=== PATIENT | male | born 1965 | race Caucasian/White ===

== ENCOUNTER → 2016-12-15 | Outpatient (CLI) | payer BC ==
[~2016-12-15] MED LIST: ESCI1TAB9 PO; GADAVIST IV PRN; IBUP-103 PO; INSUINJ4 SQ; METF-384 PO; PRLSR20 PO
--- NOTE | 2016-12-15 15:03 | DIAGNOSTIC IMAGING REPORT ---
MRI OF THE BRAIN WITHOUT AND WITH IV CONTRAST CLINICAL HISTORY: ATTN IAC, ACOUSTIC TRAUMA OF LT EAR COMPARISON STUDY: Head CT October 11, 2013. TECHNIQUE: Utilizing a 0.7 Nadiya open magnet and dedicated coil, multiplanar, multiecho imaging of the brain was performed pre and postcontrast administration. IV administration of 12 mL of Gadavist contrast was uneventful. Thin and imaging was performed pre and postcontrast administration according to the IAC protocol. FINDINGS: This exam is mildly compromised by artifact although is diagnostic. There are no areas of restricted diffusion. No acute intracranial hemorrhage, midline shift or mass effect is present. Ventricular system is unremarkable. Basilar cisterns are patent. Flow-voids for the major intracranial vessels are present. Note is made of a 1.5 cm nonenhancing cystic lesion within the right posterior aspect the nasopharynx which suggests a mucous retention cyst. This has benign imaging characteristics. There is no intracranial masses or pathologic enhancement. No mass or abnormal enhancement is identified within the internal auditory canals. There is no fluid within the mastoid air cells. Calvarial signal is maintained. Orbits are unremarkable. IMPRESSION: Unremarkable MRI of the brain and internal auditory canals. Electronically signed by: Manny Craft M.D. 12/15/2016 3:01 PM Dictated Date/Time: 12/15/2016 2:54 PM
== END | disposition home or self-care (01) ==
LOC: C.OPENMRI 13:36
PROVIDERS: ATTEND Surgery
DX: S09.91XA Unspecified injury of ear, initial encounter (principal); X58.XXXA Exposure to other specified factors, initial encounter

== ENCOUNTER → 2017-01-07 | Outpatient (CLI) | payer BC ==
[~2017-01-07] MED LIST changes: -GADAVIST IV PRN
[2017-01-07 13:26] LABS: BLOOD UREA NITROGEN 15 mg/dl (7-18); BUN/CREATININE RATIO 18.5 (10-20); CALCIUM 8.6 mg/dl (8.5-10.1); CARBON DIOXIDE 25 mmol/L (21-32); CHLORIDE 105 mmol/L (98-107); CREATININE 0.82 mg/dl (0.60-1.40); GLUCOSE 248 mg/dl (70-99); POTASSIUM 4.3 mmol/L (3.5-5.1); SODIUM 138 mmol/L (136-145)
[2017-01-07 13:27] LABS: ESTIMATED AVERAGE GLUCOSE 283 mg/dl; HA1C FLAG Normal (Normal)
[2017-01-07 13:47] LABS: RATIO 38.1 mcg/mg (0-30.0)
== END | disposition home or self-care (01) ==
LOC: C.LABPVFM 10:04
PROVIDERS: ATTEND Nurse Practitioner Adult Health
DX: E11.49 Type 2 diabetes mellitus with other diabetic neurological complication (principal); E78.1 Pure hyperglyceridemia; E11.65 Type 2 diabetes mellitus with hyperglycemia; E66.01 Morbid (severe) obesity due to excess calories; Z68.41 Body mass index [BMI] 40.0-44.9, adult

== ENCOUNTER → 2017-02-25 | Outpatient (CLI) | payer BC ==
[~2017-02-25] MED LIST changes: +ASPCH81X PO; +FLUO20CA35 PO; +GEMF600T PO; +INSDGI SC; +INSU100I SC; +LISI-725 PO; +MTR800 PO; +vitamin d PO
--- NOTE | 2017-02-25 17:34 | DIAGNOSTIC IMAGING REPORT ---
MRI LUMBAR SPINE W/O CONTRAST CLINICAL HISTORY: Low back pain with left leg radiculopathy. TECHNIQUE: Sagittal and axial T1, T2 and STIR images were obtained. COMPARISON STUDY: 01/05/2016 OBSERVATIONS: The vertebral bodies and posterior elements appear intact. There is no abnormal bony signal present to suggest a marrow replacement process. L1-2: There is a mild circumferential disc bulge. There is no significant spinal or foraminal stenosis L2-3: There is a mild circumferential disc bulge. There is an anterior annular fissure. There is a tiny right posterior central disc protrusion. There is no significant spinal or foraminal stenosis L3-4: There is a small to moderate broad-based central disc protrusion. There is moderate spinal canal narrowing. There is minimal bilateral foraminal narrowing. L4-5: There is a moderate central disc extrusion with marked secondary deformity of thecal sac. There is facet joint arthropathy. There is mild right-sided foraminal narrowing L5-S1: No disc protrusions or extrusions. No evidence of spinal canal or neural foraminal compromise. The conus medullaris and cauda equina appear normal. IMPRESSION: 1. Multilevel spondylitic changes 2. Interval decrease in the size of the previously identified disc extrusion at the L3-4 level. There is persistent moderate spinal canal narrowing 3. Slight interval increase in the size of the L4-5 disc extrusion with increasing secondary deformity of the thecal sac. Electronically signed by: Mike Barraza M.D. 02/25/2017 5:33 PM Dictated Date/Time: 02/25/2017 5:27 PM
== END | disposition home or self-care (01) ==
LOC: C.MRIBC 16:06
PROVIDERS: ATTEND Pain Medicine Interventional Pain Medicine
DX: M54.16 Radiculopathy, lumbar region (principal)

== ENCOUNTER → 2017-02-28 | Outpatient (CLI) | payer BC ==
[2017-02-28 13:08] LABS: ALT/SGPT 65 U/L (12-78); BLOOD UREA NITROGEN 18 mg/dl (7-18); BUN/CREATININE RATIO 21.7 (10-20); CARBON DIOXIDE 29 mmol/L (21-32); CHLORIDE 104 mmol/L (98-107); CHOLESTEROL 167 mg/dl (0-200); CREATININE 0.82 mg/dl (0.60-1.40); GLUCOSE 228 mg/dl (70-99); POTASSIUM 4.3 mmol/L (3.5-5.1); SODIUM 139 mmol/L (136-145)
[2017-02-28 13:11] LABS: ALB/GLOB RATIO 1.1 (0.9-2); ALKALINE PHOSPHATASE 71 U/L (45-117); AST/SGOT 35 U/L (15-37); CHOLESTEROL/HDL RATIO 5.6; HDL CHOLESTEROL 30 mg/dl; TRIGLYCERIDES 465 mg/dl (0-150)
== END | disposition home or self-care (01) ==
LOC: C.LABPVFM 09:27
PROVIDERS: ATTEND Family Medicine
DX: E78.1 Pure hyperglyceridemia (principal); E11.65 Type 2 diabetes mellitus with hyperglycemia; F32.9 Major depressive disorder, single episode, unspecified; I10 Essential (primary) hypertension; Z79.4 Long term (current) use of insulin

== ENCOUNTER → 2017-05-17 | Outpatient (CLI) | payer BC ==
[~2017-05-17] VITALS: Ht 170.2 cm; Wt 122.8 kg
[2017-05-17 15:28] VITALS: BP 138/83; PULSE 59; Ht 170.2 cm; Wt 122.8 kg
== END | disposition home or self-care (01) ==
LOC: C.NEUR 14:34
PROVIDERS: ATTEND Internal Medicine Pulmonary Disease
DX: G47.33 Obstructive sleep apnea (adult) (pediatric) (principal); E66.01 Morbid (severe) obesity due to excess calories; G47.21 Circadian rhythm sleep disorder, delayed sleep phase type

== ENCOUNTER → 2017-05-30 | Outpatient (CLI) | payer BC ==
[~2017-05-30] MED LIST changes: -ASPCH81X PO; -FLUO20CA35 PO; -GEMF600T PO; -INSDGI SC; -INSU100I SC; -LISI-725 PO; -MTR800 PO; -vitamin d PO
[2017-05-30 13:26] LABS: ALB/GLOB RATIO 1.2 (0.9-2); ALKALINE PHOSPHATASE 63 U/L (45-117); ALT/SGPT 49 U/L (12-78); AST/SGOT 25 U/L (15-37); BLOOD UREA NITROGEN 14 mg/dl (7-18); BUN/CREATININE RATIO 18.4 (10-20); CALCIUM 9.1 mg/dl (8.5-10.1); CARBON DIOXIDE 29 mmol/L (21-32); CHLORIDE 103 mmol/L (98-107); CHOLESTEROL 168 mg/dl (0-200); CHOLESTEROL/HDL RATIO 6.5; CREATININE 0.77 mg/dl (0.60-1.40); GLUCOSE 161 mg/dl (70-99); HDL CHOLESTEROL 26 mg/dl; POTASSIUM 4.5 mmol/L (3.5-5.1); SODIUM 137 mmol/L (136-145); TRIGLYCERIDES 554 mg/dl (0-150)
[2017-05-30 13:29] LABS: ESTIMATED AVERAGE GLUCOSE 252 mg/dl; HA1C FLAG Normal (Normal)
[2017-05-30 14:11] LABS: RATIO 15.7 mcg/mg (0-30.0)
== END | disposition home or self-care (01) ==
LOC: C.LABPVFM 08:09
PROVIDERS: ATTEND Nurse Practitioner Adult Health
DX: E78.1 Pure hyperglyceridemia (principal); E11.65 Type 2 diabetes mellitus with hyperglycemia; E78.5 Hyperlipidemia, unspecified; E55.9 Vitamin D deficiency, unspecified

== ENCOUNTER → 2017-06-01 | Outpatient (CLI) | payer BC ==
--- NOTE | 2017-06-07 09:26 | Sleep Study ---
Sleep Study Report Date of Service: June 02, 2017 Sleep Study Report Clinical data: The patient is a 51-year-old male with a BMI of 41.2 referred for a home sleep apnea test. He has a previous history of severe sleep apnea treated with CPAP for several years. He stopped using CPAP because he lost weight. He was referred by his psychiatrist, , for re-evaluation because of symptoms of depression. On the evening of June 02, 2017, a home sleep apnea test was performed using a [employer] type 3 monitor. Recording results: Total recording time was 10 hours. Patient monitoring time and estimated sleep time was 8.7 hours. Respiratory data: Severe sleep apnea was documented. The DAYTON was 52.1. There were 178 obstructive and 1 central apneic episodes recorded. There were 274 hypopneas recorded. The longest respiratory event was 60 seconds. Oximetry data: Significant nocturnal hypoxemia was seen. Oxygen sweetie was 63 percent. Mean saturation was 90 percent. Time below 89 percent was 152 minutes. Heart rate data: Heart rates ranged from 46 to 54 beats per minute. Snoring data: Snoring was recorded throughout the entire study. Carbon Paper Interleafer's comments: Snoring was present throughout the entire test. Hypopneas and apneas were recorded throughout the entire night. Desaturations into the 60s were seen with respiratory events. Impression: Severe obstructive sleep apnea with severe nocturnal hypoxemia Recommendations: The patient should be considered for reinstitution of CPAP. Copies To 1: Fozia Monte C.R.N.P; Virgen Gayle MD; Padmini Hoyt PA-C
== END | disposition home or self-care (01) ==
LOC: C.NEUR 08:32
PROVIDERS: ATTEND Internal Medicine Pulmonary Disease
DX: G47.33 Obstructive sleep apnea (adult) (pediatric) (principal); E66.01 Morbid (severe) obesity due to excess calories; Z68.41 Body mass index [BMI] 40.0-44.9, adult; R10.12 Left upper quadrant pain; F32.9 Major depressive disorder, single episode, unspecified; E55.9 Vitamin D deficiency, unspecified

== ENCOUNTER → 2017-06-07 | Outpatient (CLI) | payer BC ==
[~2017-06-07] VITALS: Ht 170.2 cm; Wt 125.6 kg
[2017-06-07 15:39] VITALS: BP 147/86; PULSE 67; Ht 170.2 cm; Wt 125.6 kg
== END | disposition home or self-care (01) ==
LOC: C.NEUR 14:40
PROVIDERS: ATTEND Physician Assistant Medical
DX: G47.33 Obstructive sleep apnea (adult) (pediatric) (principal); F32.9 Major depressive disorder, single episode, unspecified; I10 Essential (primary) hypertension; E66.01 Morbid (severe) obesity due to excess calories

== ENCOUNTER → 2017-07-22 | Outpatient (CLI) | payer BC ==
--- NOTE | 2017-07-23 06:19 | PAP/PSG TECHNICIAN REPORT ---
[facility] Associate Business Analyst Polysomnogram Report Study name: None Report date: 07/23/2017 Study date: 07/22/2017 Referring Physician: Farshad Toro M.D. Name: JOE VALENCIA Interpreting Physician: Farshad Toro M.D. Date of : 1965 Associate Business Analyst: Deborah Lucero RPSGT. Sex: Male Age: 51 Study Type: PSG PAP Weight: 276 lbs 18 in Height: 51 years, Height 5' 7" Neck Circum: BMI: 43.22 Medications: METFORMIN 1000 MG, OMEPRAZOLE 20 MG, GEMFIBROZIL 600 MG, LISINOPRIL 20 MG, LANTUS 75 UNITS, HUMALOG 25 UNITS, FLUOXTINE 20 MG, IBUPROFEN 800 MG Patient History 51 yr-old male here for a new CPAP treatment study. He has had previous sleep testing. In 2006, he was diagnosed with severe SHAWANDA. He wore CPAP until he lost 50 lbs. He discontinued use due to feeling better and more awake during the day. He is back to be reinstated on CPAP after a home sleep study indicated that he still had severe SHAWANDA. The test was started on room air and 4 CMH2O. ETCO2 testing was not utilized during this study. Room 1 Parameters Monitored NPSG: E1-M2, E2-M1, Fp1-M2, Fp2-M1, F3-M2, F4-M2, F4-M1, C3-M2, C4-M2, C4-M1, O1-M2, O2-M2, O2-M1, T3-M2, T4-M1, P3-M2, P4-M1, CHIN1, CHIN2, HR, EKG, Legs, PFLOW, SNOR, FLOW, CFLOW, Tidal Volume, THOR, ABDO, SpO2, PLTH, CPRESS, ETCO2 Wave, ETCO2, pH Sleep Architecture Sleep Stages Time at Lights Off 11:19:15 PM STAGES Time (min.) TST (%) Time at Lights On 5:36:45 AM Wake 47.0 -- Total Recording Time (TRT) 377.50 min. N1 26.0 8 Total Sleep Period (TSP) 372.0 min. N2 252.5 76 Total Sleep Time (TST) 330.5min. N3 0.0 0 Awake Time 47.0 min. REM 52.0 16 Wake after Sleep Onset 41.5 min. Sleep Efficiency (SE) 88 % Sleep Onset Latency (BERTHA) 5.5 min. Number of Stage 1 Shifts None Awakenings 10 Stage Changes 76 Number of REM periods 3 REM 52.0 16 REM Latency 84.0 min. NREM 278.5 84 Body Position Analysis Supine Right Left Side Prone Vertical Total Sleep Time (min.) 377.5 0.0 0.0 0.00 0.0 0.0 Total Sleep Time (%) 100% 0% 0% 0 0% N/A% Total Sleep Time REM (min.) 52.0 0.0 0.0 None 0.0 0.0 Total Sleep Time NREM (min.) 278.5 0.0 0.0 None 0.0 0.0 Intermittent Wake (min.) 47.0 0.0 0.0 None 0.0 0.0 Total Sleep Period (%) 100% None None None None None Arousals Myoclonus (PLM) * Events Count Index Events Count Index Spontaneous 21 4 Events Awake (PLMW) 21 26.8 Respiratory 39 6.7 Events Asleep w/ Arousal (PLMA) 7 1.3 PLM 7 1 Events Asleep w/o Arousal (PLMS) 91 16.5 Snoring 22 4 Total Asleep 98 17.8 Total 87 16 Total 119 19 Respiratory Analysis * CA OA MA CH H RERA Total Count 0 5 0 0 245 0 250 Index 0.0 0.9 0.0 0 44.5 0 45.4 Mean Duration 0.0 14.7 0.0 0.00 23.7 0.0 23.5 Longest Duration 0.0 17.6 0.0 0.00 0.0 0.0 59.9 Respiratory Event Summary Total Supine ~Supine Right Left Prone REM NREM Apneas Count 5 5 N/A N/A N/A N/A 2 3 Index 0.9 1 N/A N/A N/A N/A 2 1 Hypopneas (4% Desat) Count 245 245 N/A N/A N/A N/A 22 223 Index 44.5 44.5 N/A N/A N/A N/A 25.4 48.0 Apneas & All Hypopneas Count 250 250 N/A N/A N/A N/A 24 226 Index 45.4 45 N/A N/A N/A N/A 27.7 48.7 Respiratory Events (Family Living Educator+All Hyp+RERA) Count 250 250 N/A N/A N/A N/A 24 226 Index 45.4 45 N/A N/A N/A N/A 27.7 48.7 Respiratory Related Arousal Count 39 250 N/A N/A N/A N/A 2 35 Index 6.7 7 N/A N/A N/A N/A 2 8 Snoring Analysis Supine Right Left Prone REM NREM Total Snore duration 17.9 min Snores count 842 N/A N/A N/A 115 727 842 Snore mean duration 1.3 Sec Snores index 153 N/A N/A N/A 132.7 156.6 152.9 TST with snoring (%) 5.4% Desaturation Event Summary: Minimum %SpO2 Event Count Mean/Min/Max Duration(sec.) Desaturation Index % Time In Bed > 90 285 28.8 / 8.5 / 60.0 72.8 63.0 86 - 90 38 26.5 / 8.5 / 58.8 28.6 21.4 81 - 85 14 25.7 / 7.8 / 54.8 17.6 12.8 76 - 80 3 12.7 / 8.0 / 18.0 20.6 2.3 71 - 75 0 N/A 0.0 0.3 66 - 70 0 N/A 0.0 0.1 61 - 65 0 N/A 0.0 0.0 56 - 60 0 N/A 0.0 0.0 51 - 55 0 N/A 0.0 0.0 < 50 0 N/A 0.0 0.0 Total REM NREM Awake <50% 0.0 min. 0.0 min. 0.0 min. 0.0 min. 51 - 60% 0.0 min. 0.0 min. 0.0 min. 0.0 min. 61 - 70% 0.3 min. 0.3 min. 0.0 min. 0.0 min. 71 - 80% 10.0 min. 6.8 min. 3.2 min. 0.0 min. 81 - 90% 127.5 min. 28.6 min. 96.8 min. 2.1 min. 91 - 100% 234.8 min. 16.3 min. 178.5 min. 40.0 min. Average 91 87 92 95 Minimum SpO2 65 65 75 83 Desaturation Event Index 50.7 48.5 55.8 23.0 # Desat. Events below 89% 263 42 219 2 Time(%) with Saturation below 89% 27.8 8.0 19.6 0.3 Time(min.) with Saturation below 89% 103.6 29.7 72.9 1.0 Time (mins) REM (mins) NREM (mins) % of TST SpO2 Below 90% 285 42 N243 36.1 SpO2 Below 88% 130 0 0 26 Heart Rate Analysis Min (bpm) Max (bpm) Average (bpm) Awake 47 70 55 NREM 47 76 54 REM 50 85 61 Overall 47 85 55 Supplemental O2 Values Minimum O2 level: None Value Start Time End Time Associate Business Analyst Comments Mr. Valencia slept only in the supine position. Occasional PVCs were noted. No bruxism noted. CPAP was initiated at +4 CMH2O and up-titrated to a level of +14 CMH2O, Cflex 2. He continued to have hypopneas, so due to the high pressure, he was then switched to BiPAP. BiPAP was started at +16/10 CMH2O and up-titrated to a level of +23/15 CMH2O. A Quattro Air full face mask size medium from [employer] was used during titration. He awoke to use the restroom one time during the night. Mr. Valencia stated that he did not move around as much during sleep as he usually does. The final report will be interpreted and signed by a sleep physician. The completed physician report will then be placed in the patient medical record. Therapy Event: Therapy (cm H20) 4 6 8 10 12 14 Total Time at Pressure (min.) 29.7 11.0 13.0 25.3 53.6 44.2 TST at Pressure (min.) 11.7 11.0 13.0 24.8 52.6 44.2 # Periods 1 1 1 1 1 1 Sleep Onset (min.) 5.5 0.0 0.0 0.0 0.0 0.0 REM Onset (min.) N/A N/A N/A N/A 10.6 N/A Sleep Efficiency % 39 100 100 98 98 100 Wakefulness (%) 60.7 0.0 0.0 2.0 1.9 0.0 Wakefulness (min.) 18.0 0.0 0.0 0.5 1.0 0.0 NREM 1 (%) 25.9 7.5 3.8 2.0 12.1 0.0 NREM 1 (min.) 7.7 0.8 0.5 0.5 6.5 0.0 NREM 2 (%) 13.5 92.5 96.2 96.0 42.1 100.0 NREM 2 (min.) 4.0 10.2 12.5 24.3 22.6 44.2 NREM 3 (%) 0.0 0.0 0.0 0.0 0.0 0.0 NREM 3 (min.) 0.0 0.0 0.0 0.0 0.0 0.0 REM (%) 0.0 0.0 0.0 0.0 43.9 0.0 REM (min.) 0.0 0.0 0.0 0.0 23.5 0.0 # Arousals 15 1 2 1 19 5 Arousal Index 77.1 5.4 9.2 2.4 21.7 6.8 # Snore 28 88 85 107 135 88 Snore Index 143.9 479.2 392.6 259.3 154.1 119.5 AHI 51.4 87.1 92.4 50.9 45.7 54.3 AHI Supine 51.4 87.1 92.4 50.9 45.7 54.3 AHI Non-Supine N/A N/A N/A N/A N/A N/A NREM AHI 51.4 87.1 92.4 50.9 57.8 54.3 REM AHI N/A N/A N/A N/A 30.6 N/A RDI 51.4 87.1 92.4 50.9 45.7 54.3 # Obstructive 0 0 0 0 0 0 # Central Ap 0 0 0 0 0 0 # Mixed 0 0 0 0 0 0 # Hypopneas 10 16 20 21 40 40 RERAS 0 0 0 0 0 0 Total Respiratory Events 10 16 20 21 40 40 Time Below SpO2 89.00% (min.) 0.8 1.7 3.0 5.9 28.2 13.2 Mean NREM SpO2 (%) 93 92 92 91 90 92 Mean REM SpO2 (%) N/A N/A N/A N/A 86 N/A Mean Sleep SpO2 (%) 93 92 92 91 88 92 Min NREM SpO2 (%) 86 82 80 81 75 80 Min REM SpO2 (%) N/A N/A N/A N/A 75 N/A Position Supine (min.) 11.7 11.0 13.0 24.8 52.6 44.2 Position Non-supine (min.) 0.0 0.0 0.0 0.0 0.0 0.0 LM Index Sleep 5.1 16.3 37.0 36.3 18.3 9.5 LM Index NREM 5.1 16.3 37.0 36.3 26.8 9.5 LM Index REM N/A N/A N/A N/A 7.7 N/A Mean Heart Rate (bpm) 55 56 57 56 60 53 Min Heart Rate (bpm) 51 53 53 51 47 48 Therapy (cm H20) 12/0911 /15 23/15 Total Time at Pressure (min.) 33.0 60.4 26.4 56.0 25.0 TST at Pressure (min.) 33.0 32.9 26.4 56.0 25.0 # Periods 1 1 1 1 1 Sleep Onset (min.) 0.0 0.0 0.0 0.0 0.0 REM Onset (min.) N/A N/A 10.4 0.0 N/A Sleep Efficiency % 100 54 100 100 100 Wakefulness (%) 0.0 45.5 0.0 0.0 0.0 Wakefulness (min.) 0.0 27.5 0.0 0.0 0.0 NREM 1 (%) 3.0 8.3 0.0 7.1 0.0 NREM 1 (min.) 1.0 5.0 0.0 4.0 0.0 NREM 2 (%) 97.0 46.2 39.3 70.5 100.0 NREM 2 (min.) 32.0 27.9 10.4 39.5 25.0 NREM 3 (%) 0.0 0.0 0.0 0.0 0.0 NREM 3 (min.) 0.0 0.0 0.0 0.0 0.0 REM (%) 0.0 0.0 60.7 22.3 0.0 REM (min.) 0.0 0.0 16.0 12.5 0.0 # Arousals 9 15 5 15 0 Arousal Index 16.4 27.3 11.4 16.1 0.0 # Snore 88 75 54 92 2 Snore Index 160.0 136.7 122.8 98.6 4.8 AHI 56.4 63.8 43.2 17.2 4.8 AHI Supine 56.4 63.8 43.2 17.2 4.8 AHI Non-Supine N/A N/A N/A N/A N/A NREM AHI 56.4 63.8 57.8 17.9 4.8 REM AHI N/A N/A 33.7 14.4 N/A RDI 56.4 63.8 43.2 17.2 4.8 # Obstructive 0 2 1 2 0 # Central Ap 0 0 0 0 0 # Mixed 0 0 0 0 0 # Hypopneas 31 33 18 14 2 RERAS 0 0 0 0 0 Total Respiratory Events 31 35 19 16 2 Time Below SpO2 89.00% (min.) 11.1 10.8 13.7 13.2 1.1 Mean NREM SpO2 (%) 91 91 90 92 93 Mean REM SpO2 (%) N/A N/A 86 90 N/A Mean Sleep SpO2 (%) 91 91 88 92 93 Min NREM SpO2 (%) 79 79 80 78 78 Min REM SpO2 (%) N/A N/A 73 65 N/A Position Supine (min.) 33.0 32.9 26.4 56.0 25.0 Position Non-supine (min.) 0.0 0.0 0.0 0.0 0.0 LM Index Sleep 21.8 18.2 6.8 20.4 9.6 LM Index NREM 21.8 18.2 11.6 22.1 9.6 LM Index REM N/A N/A 3.7 14.4 N/A Mean Heart Rate (bpm) 52 53 58 54 50 Min Heart Rate (bpm) 47 48 48 47 47
--- NOTE | 2017-07-25 11:32 | POLYSOMNOGRAPH REPORT ---
CLINICAL DATA: 51-year-old male with BMI of 43.22 referred by myself and Padmini Hoyt for a CPAP study. He had severe sleep apnea diagnosed in 2006. He wore CPAP until he lost 50 pounds. He had a repeat home sleep study which showed he still has severe sleep apnea. SLEEP ARCHITECTURE: Total recording time was 377.5 minutes. Total sleep period was 372 minutes. Total sleep time was 330.5 minutes divided between 278.5 minutes of non-REM sleep and 52 minutes of REM sleep. Sleep onset latency was 5.5 minutes. REM latency was 84 minutes. Sleep efficiency was 88%. Wake after sleep onset was 41.5 minutes. Sleep consisted of stage N1 8%, N2 76%, and REM 16%. AROUSAL DATA: 87 arousals recorded for an index of 16 per hour. PLM DATA: 98 limb movements during sleep were noted for an index of 17.8 per hour with arousal index of 1.3 per hour. RESPIRATORY DATA: The AHI was 35.4. There were 5 obstructive apneic episodes, the longest duration of which was 17.6 seconds. There were 245 hypopneic episodes. The mean duration of hypopnea was 23.7 seconds. OXIMETRY DATA: Nocturnal hypoxemia was seen. Oxygen sweetie was 65% during REM. The mean saturation was 91%. Time below 88% was 130 minutes. EKG: Heart rate ranged from 47-85 beats per minute. Occasional PVCs were noted. PUBLIC RELATIONS ACCOUNT EXECUTIVE'S COMMENTS: The patient slept supine. He used a full facemask Quattro Air from [employer]. He was started initially on CPAP and titrated up to 14 cm of water pressure, but continued to have hypopneas so he was switched to BiPAP and was begun on 16/10 and then titrated up to 23/15. At the final pressure setting of BiPAP 23/15 the patient had an AHI of 4.8. He slept at that pressure for 25 minutes. IMPRESSION: Severe sleep apnea/hypopnea corrected with BiPAP 23/15. RECOMMENDATIONS: The patient should be seen back in the clinic to discuss being started on BiPAP. He may have a difficult time tolerating that pressure ( 23/15) level for long periods of time. He may eventually need to be considered for ASV needed. Clinical correlation is needed. JM
== END | disposition home or self-care (01) ==
LOC: C.NEUR 21:00
PROVIDERS: ATTEND Physician Assistant Medical
DX: F32.9 Major depressive disorder, single episode, unspecified (principal); I10 Essential (primary) hypertension; E66.01 Morbid (severe) obesity due to excess calories; G47.33 Obstructive sleep apnea (adult) (pediatric)

== ENCOUNTER → 2017-08-23 | Outpatient (CLI) | payer BC ==
[~2017-08-23] VITALS: Ht 170.2 cm; Wt 122.1 kg
[2017-08-23 15:52] VITALS: BP 157/89; PULSE 67; Ht 170.2 cm; Wt 122.1 kg
== END | disposition home or self-care (01) ==
LOC: C.NEUR 14:55
PROVIDERS: ATTEND Internal Medicine Pulmonary Disease
DX: G47.33 Obstructive sleep apnea (adult) (pediatric) (principal); G47.21 Circadian rhythm sleep disorder, delayed sleep phase type

== ENCOUNTER → 2017-10-27 | Outpatient (CLI) | payer BC ==
[~2017-10-27] MED LIST changes: +ASPCH81X PO; +FLUO20CA35 PO; +GEMF600T PO; +INSDGI SC; +INSU100I SC; +LISI-725 PO; +MTR800 PO; +vitamin d PO
[2017-10-27 13:33] LABS: ESTIMATED AVERAGE GLUCOSE 200 mg/dl; HA1C FLAG Normal (Normal)
[2017-10-27 13:51] LABS: ALT/SGPT 57 U/L (12-78); BLOOD UREA NITROGEN 14 mg/dl (7-18); BUN/CREATININE RATIO 18.4 (10-20); CALCIUM 9.1 mg/dl (8.5-10.1); CARBON DIOXIDE 28 mmol/L (21-32); CHLORIDE 100 mmol/L (98-107); CREATININE 0.77 mg/dl (0.60-1.40); GLUCOSE 176 mg/dl (70-99); POTASSIUM 4.1 mmol/L (3.5-5.1); SODIUM 135 mmol/L (136-145)
[2017-10-27 13:54] LABS: ALB/GLOB RATIO 1.1 (0.9-2); ALKALINE PHOSPHATASE 66 U/L (45-117); AST/SGOT 29 U/L (15-37)
[2017-10-27 14:06] LABS: CHOLESTEROL/HDL RATIO 5.7
== END | disposition home or self-care (01) ==
LOC: C.LABPVFM 10:04
PROVIDERS: ATTEND Nurse Practitioner Adult Health
DX: E11.65 Type 2 diabetes mellitus with hyperglycemia (principal); E78.1 Pure hyperglyceridemia; E55.9 Vitamin D deficiency, unspecified; Z79.4 Long term (current) use of insulin

== ENCOUNTER 2017-12-02 11:03 | Day surgery (SDC) | payer OTHER ==
[2017-10-27 14:38] VITALS: BMI 41.0
[2017-10-27 14:46] VITALS: BMI 41.0
[2017-10-31 12:05] VITALS: BMI 42.0
--- NOTE | 2017-10-31 12:36 | PAT Medication Instructions ---
Service Date Oct 31, 2017. Current Home Medication List Aspirin (Aspirin Chewable), 81 MG PO QAM Fluoxetine (Prozac), 20 MG PO QAM Gemfibrozil (Lopid), 600 MG PO BID Ibuprofen (Ibuprofen), 800 MG PO DAILY PRN for Pain Insulin Glargine (Lantus), 60 SC DAILY AFTERNOON Insulin Lispro (Human) (Humalog), 1 DOSE SC TID Lisinopril (Zestril), 20 MG PO QAM Metformin Hcl (Glucophage), 1,000 MG PO AMHS Omeprazole (Prilosec), 20 MG PO QAM [vitamin d], 1 TAB PO QAM Medication Instructions For Your Scheduled Surgery - Contact your surgeon for instructions for: Ibuprofen (Ibuprofen), 800 MG PO DAILY PRN for Pain - Hold the following medications 24 hours prior to surgery: Gemfibrozil (Lopid), 600 MG PO BID - Hold the following medications 48 hours prior to surgery: Metformin Hcl (Glucophage), 1,000 MG PO AMHS - Hold the following medications the morning of surgery: Lisinopril (Zestril), 20 MG PO QAM Insulin Lispro (Human) (Humalog), 1 DOSE SC TID [vitamin d], 1 TAB PO QAM - Take the following medications the morning of surgery with a sip of water: Omeprazole (Prilosec), 20 MG PO QAM Aspirin (Aspirin Chewable), 81 MG PO QAM Fluoxetine (Prozac), 20 MG PO QAM - Take the following medications as scheduled the afternoon before surgery: Insulin Glargine (Lantus), 60 SC DAILY AFTERNOON Insulin Lispro (Human) (Humalog), 1 DOSE SC TID If you have any questions please call us at [phone] or [phone] or [phone]
--- NOTE | 2017-10-31 13:38 | DIAGNOSTIC IMAGING REPORT ---
CHEST 2 VIEWS ROUTINE CLINICAL HISTORY: PAT preoperative evaluation COMPARISON STUDY: 06/15/2016 FINDINGS: The bones soft tissues and hemidiaphragms are normal. The cardiomediastinal silhouette is normal. The lungs are clear. The pulmonary vasculature is normal. IMPRESSION: Negative chest. The above report was generated using voice recognition software. It may contain grammatical, syntax or spelling errors. Electronically signed by: López Art M.D. 10/31/2017 1:36 PM Dictated Date/Time: 10/31/2017 1:36 PM
[2017-10-31 13:45] LABS: BASO % 0.4 %; BASO ABS # 0.03 K/uL (0-0.2); EOS % 2.2 %; EOS ABS # 0.17 K/uL (0-0.5); HEMATOCRIT 42.3 % (42-52); HEMOGLOBIN 14.3 g/dL (14.0-18.0); IG# 0.04 K/uL (0.00-0.02); LYMPH % 29.6 %; MEAN CELL VOLUME 86.7 fL (80-100); MEAN CORPUSCULAR HEMOGLOBIN 29.3 pg (25-34); MEAN CORPUSCULAR HGB CONC 33.8 g/dl (32-36); MEAN PLATELET VOLUME 10.8 fL (7.4-10.4); MONO % 8.2 %; MONO ABS # 0.64 K/uL (0.11-0.59); NEUT % 59.1 %; NEUT ABS # 4.59 K/uL (1.4-6.5); PLATELET COUNT 179 K/uL (130-400); RED CELL DISTRIBUTION WIDTH CV 13.4 % (11.5-14.5); RED CELL DISTRIBUTION WIDTH SD 42.3 fL (36.4-46.3); WHITE BLOOD COUNT 7.77 K/uL (4.8-10.8)
--- NOTE | 2017-12-01 09:19 | HISTORY & PHYSICAL EXAMINATION ---
DATE OF ADMISSION: 12/02/2017 CHIEF COMPLAINT: Medium sized rotator cuff tear of the right shoulder. 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 On September 10, he was lifting a bag of garbage into a dumpster and felt a pop in his right shoulder. He does have a history with his right shoulder and had a work related injury back in 1998 and underwent an open anterior rotator cuff repair. A year later he was still having pain, he saw Dr. Aguilar in 1999 who reopened the incision and did a supraspinatus repair. He did fairly well for 12 years but unfortunately had another work related injury and reinjured his right shoulder. He saw Dr. Aguilar who then did an arthroscopic supraspinatus repair. He did well over the past 5 years with his right shoulder. He had little twinges at times but overall felt he had good strength and was sleeping well. Unfortunately, since the right shoulder injury 6 weeks ago, he has had significant increase in symptoms. He is having trouble sleeping at night. He notices weakness with this shoulder and difficulty doing things away from his body. He is a poorly controlled diabetic. MRI and clinical examination of his shoulder were then diagnostic for medium sized rotator cuff tear. He has elected to undergo a revision rotator cuff repair. PAST MEDICAL HISTORY: Significant for diabetes, sleep apnea, hyperlipidemia, depression and hypertension. SURGICAL HISTORY: Significant for right shoulder rotator cuff repair x3, hernia repair and left elbow surgery. ALLERGIES: None. MEDICATIONS: Include metformin, omeprazole, lisinopril, fluoxetine, Lantus, Humalog, aspirin and gemfibrozil. FAMILY HISTORY: Denies. SOCIAL HISTORY: He is , lives alone, has 2 kids. Rarely drinks and tries to remain active. REVIEW OF SYSTEMS: Complains of right shoulder pain. All other pertinent review of systems are negative. PHYSICAL EXAMINATION: GENERAL: He is awake, alert and oriented x3. He is in no apparent distress. He is very pleasant. HEENT: Pupils are equal, round and reactive to light. Extraocular motion intact. Oral mucosa is pink and moist. HEART: Regular rate per radial pulse. LUNGS: Hailey symmetrically bilaterally with no audible breath sounds. ABDOMEN: Soft, nontender, nondistended. MUSCULOSKELETAL: On physical examination of his shoulder, he has about 130 degrees of forward elevation and 130 degrees of abduction. He has 4/5 muscle strength to full can testing and 4/5 muscle strength with external rotation. He has negative bear hug and belly press test. He has a lot of tenderness to palpation in the subacromial space. Very positive Neer and Sapp impingement signs. Negative belly press test. IMAGING: MRI of the shoulder is a poor quality MRI, but does show a complete tear of the supraspinatus and parts of the infraspinatus was minimal retraction and minimal atrophy. There is severe atrophy of the teres minor. No signs of glenohumeral arthritis. The biceps tendon is absent. IMPRESSION: Recurrent medium sized right rotator cuff tear. PLAN: We will proceed with a revision medium sized rotator cuff repair. Postoperatively, he will be placed in an arm sling and discharged to home on oral pain medications.
[~2017-12-02] VITALS: Ht 170.2 cm; Wt 122.6 kg
[~2017-12-02 11:03] MED LIST changes: +BUPIVACAINE 0.5 % 5 MG/1 ML PF 10ML VIAL ONE; +CEFAZOLIN 2000MG IV PUSH 10 ML IV SCH; +CLONIDINE HCL 100 MCG/ML SYRINGE ONE; -ESCI1TAB9 PO; -IBUP-103 PO; -INSUINJ4 SQ; +MEPIVACAINE HCL 1.5% 30 ML VIAL ONE
[2017-12-02 11:26] VITALS: BP 186/100; PULSE 72; TEMP 37; O2SAT 96; Ht 170.2 cm; Wt 122.6 kg
[2017-12-02] MEDS ORDERED: CEFAZOLIN SOD 2000MG/10 ML IV PUSH IV ONE (11:49)
--- NOTE | 2017-12-02 12:00 | History & Physical Bridge Note ---
H&P Re-Evaluation Bridge Note: I have examined the patient, reviewed the History & Physical and in the interval since the performance of the History & Physical I have noted the following changes of clinical significance: No changes noted
[2017-12-02] MEDS ORDERED: MIDAZOLAM HCL 1 MG/ML 2ML VIAL ONE (13:16)
[2017-12-02] MEDS ORDERED: FENTANYL CITRATE INJ 50 MCG/1 ML 2 ML VIAL ONE (13:16)
[2017-12-02] MEDS ORDERED: NovoLIN-R INSULIN PER UNIT CHARGE ONE ×2 (13:53→13:54)
[2017-12-02] MEDS ORDERED: BUPIVACAINE 0.5 % 5 MG/1 ML MPF 30ML VIAL ONE (13:59)
[2017-12-02] MEDS ORDERED: EpINEphrine HCL INJ 1 MG/ML 5ML SYRINGE ONE (13:59)
[2017-12-02] MEDS ORDERED: EpINEphrine INJ 1MG/ML AMP 1 MG/ML AMP ONE (14:13)
[2017-12-02] MEDS ORDERED: ONDANSETRON INJ 2 MG/ML 2 ML VIAL ONE (15:04)
[2017-12-02] MEDS ORDERED: GLYCOPYRROLATE INJ 0.2 MG/ML VIAL ONE (15:04)
[2017-12-02] MEDS ORDERED: PROPOFOL IV EMULSION 10 MG/ML 20 ML VIAL IV ONE (15:04)
[2017-12-02] MEDS ORDERED: SUCCINYLCHOLINE CHLORIDE 20 MG/ML 10 ML VIAL IV ONE (15:04)
[2017-12-02] MEDS ORDERED: PHENYLEPHRINE 100MCG/ML 5ML SYR ONE (15:04)
[2017-12-02] MEDS ORDERED: PHENYLEPHRINE HCL INJ 10 MG/ML VIAL ONE (15:04)
[2017-12-02] MEDS ORDERED: NEOSTIGMINE METHYLSULFATE 5 MG/5 ML SYR ONE (15:04)
[2017-12-02] MEDS ORDERED: ROCURONIUM BROMIDE 10 MG/ML 5 ML VIAL IV ONE (15:04)
[2017-12-02] MEDS ORDERED: EpHEDrine SULFATE 50MG/5ML SYR ONE (15:04)
--- NOTE | 2017-12-02 15:58 | [facility] Post Operative Brief Note ---
Immediate Operative Summary Operative Date Dec 02, 2017. Pre-Operative Diagnosis Recurrent medium sized right rotator cuff tear Post-Operative Diagnosis same as pre-operative Procedure(s) Performed Medium Rotator Cuff repair Surgeon Dr. Flip Kim Digital Print Operator Surgeon(s) BENY Santizo Estimated Blood Loss 5cc Findings as above Specimens none Complication(s) None Disposition Recovery Room / PACU
[2017-12-02] MEDS ORDERED: ONDANSETRON INJ 2 MG/ML 2 ML VIAL IV PRN ×2 (16:00→16:30)
[2017-12-02] MEDS ORDERED: ATROPINE SULFATE 0.1 MG/ML 5ML SYR IV PRN (16:00)
[2017-12-02] MEDS ORDERED: EpHEDrine SULFATE INJ 50 MG/ML AMP IV PRN (16:00)
[2017-12-02] MEDS ORDERED: PROMETHAZINE HCL INJ 12.5 MG in SODIUM CHLORIDE 0.9% 50ML 50 ML IV PRN (16:00)
[2017-12-02] MEDS ORDERED: LABETALOL HCL IV 5 MG/ML 20ML IV PRN (16:00)
[2017-12-02] MEDS ORDERED: KETO10TA PO (16:20)
[2017-12-02] MEDS ORDERED: OXYC-57 PO (16:20)
[2017-12-02] MEDS ORDERED: SODIUM CHLORIDE 0.9% 1000ML 1,000 ML IV SCH (16:22)
--- NOTE | 2017-12-02 16:22 | Discharge Instructions ---
Discharge Instructions Date of Service Dec 02, 2017. Admission Reason for Admission: Right Shoulder Full Thickness Rotator Cuff Tear, P Discharge Discharge Diagnosis / Problem: SAME ABOVE Discharge Goals Goal(s): Decrease discomfort, Improve function Activity Recommendations Activity Limitations: as noted below Lifting Limitations: until after follow-up appointment Shower/Bathe: tomorrow . Instructions / Follow-Up Instructions / Follow-Up MEDICATIONS: * Resume previous medications unless instructed otherwise by your surgeon. * Always take pain medication on a full stomach or with food to avoid upset stomach. * Do not drink alcohol or drive while taking narcotics. * Ibuprofen or Tylenol may be taken if narcotic not needed. SPECIAL CARE INSTRUCTIONS: __ None _X_ Keep extremity elevated and iced x 48 hours; apply ice 20-30 minutes 8-10 times/day. May remove at night. __ Sling __24 hrs/day __ Remove at night _X_ Shoulder Immobilizer (MAY REMOVE AFTER 48 HOURS ONLY TO SHOWER) _X_ 24 hrs/day __ Remove at night _X_ Dressing __ Maintain until seen in office, may shower with plastic over site _X_ Remove dressings in 24-48 hours and then may shower _X_ Cover incisions with band-aids after showering __ Do not remove steri-strips Call physician if chills or temperature rises above 102 degrees or pain unrelieved by prescribed pain medications at . . Current Hospital Diet Patient's current hospital diet: Discharge Diet Recommended Diet: Regular Diet Fluid Restriction: None Procedures Procedures Performed: Right Shoulder Arthroscopy Medium Rotator Cuff Repair Pending Studies Studies pending at discharge: no Laboratory Results Hemoglobin A1c Test 10/27/17 10:10 Range/Units Estimated Average Glucose 200 mg/dl Hemoglobin A1c 8.6 H 4.5-5.6 % Lipid Panel Test 10/27/17 10:10 Range/Units Triglycerides Level 561 H 0-150 mg/dl Cholesterol Level 132 0-200 mg/dl HDL Cholesterol 23 mg/dl Cholesterol/HDL Ratio 5.7 LDL Cholesterol, Calculated mg/dl Work Instructions Return To Work: after follow-up Lifting Limitations: NO LIFTING WITH RIGHT ARM Medical Emergencies . Who to Call and When: Medical Emergencies: If at any time you feel your situation is an emergency, please call 911 immediately. . Non-Emergent Contact Non-Emergency issues call your: Primary Care Provider Call Non-Emergent contact if: you have a fever, temperature is above 101.5 . "Provider Documentation" section prepared by Kit Gifford. . VTE Core Measure Inpt VTE Proph given/why not?: Treatment not indicated
[2017-12-02] MEDS ORDERED: OXYCODONE/ACETAMINOPHEN 5-325 TAB PO PRN ×2 (16:30)
[2017-12-02 17:00] VITALS: BP 105/60; PULSE 75; TEMP 36.7; O2SAT 92
--- NOTE | 2017-12-02 17:00 | Anesthesiology Progress Note ---
Anesthesia Post Op Note Date & Time Dec 02, 2017 at 17:00 Vital Signs Pain Intensity: 0 Vital Signs Past 12 Hours Date Time Temp Pulse Resp B/P (MAP) Pulse Ox O2 Delivery O2 Flow Rate FiO2 12/02/17 16:55 36.9 78 18 90/56 (76) 92 Nasal Cannula 2 12/02/17 16:45 79 15 109/65 92 Nasal Cannula 4 12/02/17 16:35 80 17 113/68 94 Oxymask 10 12/02/17 16:25 87 20 102/65 92 Oxymask 10 12/02/17 16:18 36.5 88 20 133/79 96 Oxymask 10 12/02/17 11:26 37 72 18 186/100 (128) 96 Room Air Notes Mental Status: alert / awake / arousable, participated in evaluation Pt Amnestic to Procedure: Yes Nausea / Vomiting: adequately controlled Pain: adequately controlled Airway Patency, RR, SpO2: stable & adequate BP & HR: stable & adequate Hydration State: stable & adequate Anesthetic Complications: no major complications apparent
[2017-12-02 17:30] VITALS: BP 105/60; PULSE 78; O2SAT 93
--- NOTE | 2017-12-02 17:47 | OPERATIVE REPORT ---
DATE OF OPERATION: 12/02/2017 PREOPERATIVE DIAGNOSIS: Recurrent medium sized rotator cuff tear of the right shoulder. POSTOPERATIVE DIAGNOSIS: Same. PROCEDURE: Right shoulder diagnostic arthroscopy with extensive debridement and medium sized rotator cuff repair. SURGEON: Dr. Flip Kim. COMMERCIAL LOAN REVIEWER: Ruben Gifford PA-C, whose assistance was necessary for positioning the arm and helping with instrumentation. ANESTHESIA: General with a right interscalene nerve block. COMPLICATIONS: None. CONDITION: Stable to PACU. 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 He does have a history of having his rotator cuff repaired twice in the past, once through an open technique was once through an arthroscopic technique. He did well postoperatively both times. Unfortunately, in August, he was lifting a bag of trash and he felt a pop in his shoulder. MRI showed a recurrent rotator cuff tear. He elected to undergo arthroscopy. DESCRIPTION OF PROCEDURE: On 12/02/2017, he arrived at [facility] for the above procedure. He was seen in the preoperative holding area and the operative extremity was identified and signed. He was given preoperative antibiotics and a right interscalene nerve block. He was taken back to the operating room, laid on the table in supine position and put under general anesthesia. He was then put into the beachchair position. The right shoulder was prepped and draped in sterile fashion. Time-out was done and the patient and operative extremity was properly identified. A scope was introduced in the posterior portal. Diagnostic arthroscopy showed no cartilage damage to the humeral head or the glenoid. There was a little fraying of the anterior labrum. The biceps tendon was absent from previous tenotomy. The subscapularis was intact. There was a tear of the entire supraspinatus. The infraspinatus and teres minor were intact. An anterior portal was made. A shaver was used to do a debridement of some of the labrum just to clean it out. The scope was then put into the subacromial space, a lateral portal was made, a shaver was used to do a complete subacromial and subdeltoid bursectomy and an ablator was used to tease the coracoacromial ligament off the undersurface of the acromion. An acromioplasty did not need to be done. Attention was turned to the rotator cuff. An additional anterolateral portal was made and Josefa cannulas were placed in each of the lateral portals. It was a medium size crescent-shaped rotator cuff tear. Previous sutures were removed. The tuberosity was then prepared with a ring curette and a microfracture. The rotator cuff was then fixed with an Arthrex SpeedBridge configuration using 4.75 mm BioComposite SwiveLock suture anchors. This gave a nice knotless fixation. Multiple pictures were taken. The scope was placed back into the glenohumeral joint and the articular margin of the rotator cuff had been restored. Pictures were taken. Arthroscopic instrument removed from the shoulder. Portal sites were closed with 3-0 nylon. He was then placed in a soft dressing and an abduction arm sling. He was then extubated, transferred to a litter and taken to the postanesthesia care unit in stable condition. He tolerated the procedure well. I attest to the content of the Intraoperative Record and any orders documented therein. Any exception s are noted below.
[2017-12-02 18:00] VITALS: BP 109/64; PULSE 79; TEMP 36.7; O2SAT 91
== END 2017-12-02 18:35 | disposition home or self-care (01) ==
LOC: C.ACU 11:03
PROVIDERS: ATTEND Orthopaedic Surgery
DX: M75.121 Complete rotator cuff tear or rupture of right shoulder, not specified as traumatic (principal); G47.33 Obstructive sleep apnea (adult) (pediatric); E11.9 Type 2 diabetes mellitus without complications; I10 Essential (primary) hypertension; E78.5 Hyperlipidemia, unspecified; Z79.899 Other long term (current) drug therapy; Z79.4 Long term (current) use of insulin; Z98.890 Other specified postprocedural states

== ENCOUNTER → 2018-04-17 | Outpatient (CLI) | payer OTHER ==
[~2018-04-17] MED LIST changes: -BUPIVACAINE 0.5 % 5 MG/1 ML PF 10ML VIAL ONE; -CEFAZOLIN 2000MG IV PUSH 10 ML IV SCH; -CLONIDINE HCL 100 MCG/ML SYRINGE ONE; +KETO10TA PO; -MEPIVACAINE HCL 1.5% 30 ML VIAL ONE; +OXYC-57 PO
[2018-04-17 13:35] LABS: BLOOD UREA NITROGEN 21 mg/dl (7-18); CREATININE 0.92 mg/dl (0.60-1.40); GLUCOSE 223 mg/dl (70-99)
[2018-04-17 13:36] LABS: ALBUMIN 3.8 gm/dl (3.4-5.0); ALKALINE PHOSPHATASE 67 U/L (45-117); ALT/SGPT 81 U/L (12-78); AST/SGOT 49 U/L (15-37); CALCIUM 9.4 mg/dl (8.5-10.1); CARBON DIOXIDE 27 mmol/L (21-32); CHOLESTEROL 154 mg/dl (0-200); LDL CHOLESTEROL CALCULATED 49 mg/dl; POTASSIUM 4.6 mmol/L (3.5-5.1); SODIUM 136 mmol/L (136-145); TOTAL PROTEIN 7.3 gm/dl (6.4-8.2)
[2018-04-17 14:09] LABS: HEMOGLOBIN A1C 9.4 % (4.5-5.6)
== END | disposition home or self-care (01) ==
LOC: C.LABPVFM 10:24
PROVIDERS: ATTEND Nurse Practitioner Adult Health
DX: E78.1 Pure hyperglyceridemia (principal); E11.65 Type 2 diabetes mellitus with hyperglycemia; I10 Essential (primary) hypertension; Z79.4 Long term (current) use of insulin

== ENCOUNTER → 2018-04-20 | Outpatient (CLI) | payer OTHER ==
--- NOTE | 2018-04-20 12:10 | DIAGNOSTIC IMAGING REPORT ---
CAROTID ARTERY ULTRASOUND CLINICAL HISTORY: Vision disturbance. COMPARISON STUDY: None. TECHNIQUE: Real-time, grayscale, and color Doppler sonography of the carotid and vertebral arteries was performed. Images were viewed in the transverse and longitudinal planes. FINDINGS: There is minimal atherosclerotic plaque. Velocity measurements are listed below. COMMON CAROTID PEAK SYSTOLIC VELOCITY (CM/S): RIGHT 92 LEFT 98 ICA PEAK SYSTOLIC VELOCITY (CM/S): RIGHT 61 LEFT 69 Systolic ratios between the internal to common carotid arteries are normal. Antegrade flow is seen in the vertebral arteries. The external carotid arteries are patent. Blood pressure in the right arm measured 138/74. Blood pressure in the left arm measured 146/80. IMPRESSION: No evidence of a hemodynamically significant stenosis. Minimal atherosclerotic plaque. Electronically signed by: Manny Craft M.D. 04/20/2018 12:09 PM Dictated Date/Time: 04/20/2018 12:08 PM
== END | disposition home or self-care (01) ==
LOC: C.ULTR 11:30
PROVIDERS: ATTEND Family Medicine
DX: H53.9 Unspecified visual disturbance (principal); I65.23 Occlusion and stenosis of bilateral carotid arteries

== ENCOUNTER → 2018-06-28 | Outpatient (CLI) | payer OTHER ==
[~2018-06-28] MED LIST changes: -KETO10TA PO; -OXYC-57 PO
== END | disposition home or self-care (01) ==
LOC: C.LABPVFM 11:50
PROVIDERS: ATTEND Family Medicine
DX: N52.9 Male erectile dysfunction, unspecified (principal)

== ENCOUNTER 2020-01-02 16:36 | Observation (INO) ==
--- NOTE | 2020-01-02 17:03 | XRay Report ---
XR chest 1V portable CLINICAL HISTORY: Chest Pain COMPARISON STUDY: Chest radiograph October 31, 2017. FINDINGS: Lung volumes are normal. Lungs are clear. There is no pneumothorax or pleural effusion. Car diac size is normal. Mediastinal contours are normal. There is no evidence for pulmonary edema. IMPRESSION: No acute cardiopulmonary findings. ACT 112: Negative or not required by law. Electronically signed by: Manny Craft M.D. 01/02/2020 5:02 PM
[2020-01-02] MEDS ORDERED: ASPIRIN CHEW 324 MG PO STA (17:08)
[2020-01-02] MEDS ORDERED: NITROGLYCERIN SL 0.4 MG/TAB TAB SL STA (17:08)
--- NOTE | 2020-01-02 17:11 | Emergency Department Note ---
Entered by Augusto Linares acting as a scribe for History of Present Illness General Chief complaint: Chest Pain Stated complaint: CHEST PAIN AND NUMBNESS IN ARM Time Seen by Provider: 01/02/20 16:49 Source: patient Limitations: no limitations History of Present Illness Onset (ago): hour(s) 3 Location: chest Radiation: extremity (left arm) Pain Consistency: + constant Maximum Pain Intensity: 2 Quality: + other (tightness) Exacerbated By: not by movement Associated symptoms: + diaphoresis and + nausea/vomiting (nausea) Treatments prior to arrival: none The patient is a 54 year old male who presents to the Emergency Room with complaints of constant chest pain starting 3 hours ago. The patient states he went to go to take a nap and then started having chest pain. He states the pain started going down his left arm and his left arm went limp. He states he got really nauseous and a little sweaty. He states he had a pulling and tight feeling in his chest. He denies taking any medications for his pain. He states he has had chest pain before but states it has never been this severe. He denies getting his chest pain checked before. He denies having worse pain with exertion. He states he takes high BP medications. The patient denies smoking and having a family history of heart disease. Home Medications Home Medications Medication Instructions Recorded Confirmed Type lisinopril 20 mg PO DAILY 08/15/18 10/31/19 History triamcinolone acetonide 0.5 % 1 appln TOP BID #30 gm 06/19/19 10/31/19 Rx topical cream blood sugar diagnostic #400 ea 07/05/19 10/31/19 Rx insulin aspart U-100 100 unit/mL See Rx Instructions SQ BID #10 syr 07/05/19 10/31/19 Rx (3 mL) subcutaneous pen lancets #400 ea 07/05/19 10/31/19 Rx pen needle, diabetic 31 gauge x #400 ea 07/05/19 10/31/19 Rx 3/16" duloxetine 30 mg PO DAILY 07/08/19 10/31/19 History ergocalciferol (vitamin D2) 50,000 unit PO WK 07/08/19 10/31/19 History levothyroxine 150 mcg PO DAILY 07/08/19 10/31/19 History phenazopyridine [Pyridium] 100 mg PO TID #6 tab 07/08/19 10/31/19 Rx blood-glucose meter #1 ea 07/12/19 10/31/19 History ibuprofen 600 mg tablet 600 mg PO Q6H PRN #60 tab 07/12/19 10/31/19 History lancets #50 ea 07/12/19 10/31/19 History pen needle, diabetic 31 gauge x #30 ea 07/12/19 10/31/19 History 3/16" omeprazole 20 mg tablet,delayed 20 mg PO DAILY #90 tab 08/14/19 10/31/19 Rx release metformin 1,000 mg tablet 1,000 mg PO BID #180 tab 08/15/19 10/31/19 Rx vitamin E (dl, acetate) 1,000 unit See Rx Instructions PO DAILY #90 11/23/19 Rx capsule cap cholecalciferol (vitamin D3) 125 5,000 units PO DAILY #30 cap 11/29/19 Rx mcg (5,000 unit) capsule atorvastatin 20 mg tablet 20 mg PO DAILY #90 tab 12/16/19 Rx insulin glargine 100 unit/mL (3 65 units SQ DAILY 90 Days #60 ml 01/02/20 Rx mL) subcutaneous pen Allergies Allergy/AdvReac Type Severity Reaction Status Date / Time No Known Drug Allergies Allergy Verified 10/31/19 11:33 Past Med/Surg History Medical History Diabetes Hypertension Surgical History History of vasectomy Family History Other No significant family history Social History marital status: Feels Safe at Home: Yes Smoking Status: Never smoker Review of Systems See HPI for pertinent positives & negatives. and A total of 10 systems reviewed and were otherwise negative Physical Exam Vital Signs Vital Signs - 24 hr 01/02/20 16:39 01/02/20 17:27 01/02/20 17:33 Temperature 36.8 C Temperature Source Oral Pulse Rate 72 67 79 Pulse Rate from SpO2 Sensor 67 81 Respiratory Rate 20 18 14 Respiratory Effort / Characteristics Non-Labored Spontaneous Respiratory Depth Normal Respiratory Pattern Regular Blood Pressure 191/88 H 153/84 H 137/77 Blood Pressure Mean 122 116 93 Pulse Oximetry 98 95 94 Oxygen Delivery Method Room Air Room Air Sepsis Recent Fever Within 48 Hours No Sepsis Action Taken by Nursing No Action Required 01/02/20 17:45 01/02/20 18:00 01/02/20 18:15 Temperature Temperature Source Pulse Rate 67 68 64 Pulse Rate from SpO2 Sensor 67 67 63 Respiratory Rate 18 19 19 Respiratory Effort / Characteristics Respiratory Depth Respiratory Pattern Blood Pressure 137/77 133/76 136/75 Blood Pressure Mean 92 92 91 Pulse Oximetry 93 91 91 Oxygen Delivery Method Sepsis Recent Fever Within 48 Hours Sepsis Action Taken by Nursing 01/02/20 18:30 01/02/20 18:45 01/02/20 19:00 Temperature Temperature Source Pulse Rate 62 66 67 Pulse Rate from SpO2 Sensor 63 65 67 Respiratory Rate 18 14 20 Respiratory Effort / Characteristics Respiratory Depth Respiratory Pattern Blood Pressure 142/69 H 133/67 155/76 H Blood Pressure Mean 81 79 98 Pulse Oximetry 93 94 97 Oxygen Delivery Method Sepsis Recent Fever Within 48 Hours Sepsis Action Taken by Nursing CONSTITUTIONAL/VITAL SIGNS: Reviewed / noted above. GENERAL: Non-toxic in appearance. INTEGUMENTARY: Warm, dry, and Barn[place]. HEAD: Normocephalic. EYES: without scleral icterus or trauma. ENT/OROPHARYNX: clear and moist. LYMPHADENOPATHY/NECK: Is supple without lymphadenopathy or meningismus. RESPIRATORY: Lungs clear and equal. CARDIOVASCULAR: Regular rate and rhythm. GI/ABDOMEN: Soft and nontender. No organomegaly or pulsatile mass. No rebound or guarding. Normal bowel sounds. EXTREMITIES: Warm and well perfused. BACK: No CVA tenderness. NEUROLOGICAL: Intact without focal deficits. PSYCHIATRIC: normal affect. MUSCULOSKELETAL: Normally developed with good muscle tone. Course Course 1699: The patient was evaluated in room C3, and a complete history and physical examination were performed. 1845: I reevaluated the patient. I updated him on his labs and imaging. I recommended admission, and he agrees with the plan. 1941: I discussed the patient's case with Dr. Raymundo [facility]. He will evaluate the patient for further management Administered Medications Discontinued Medications Aspirin (Aspirin) 324 mg PO NOW STA Stop: 01/02/20 17:09 Last Admin: 01/02/20 17:28 Dose: 324 mg Documented by: [id number] Nitroglycerin (Nitrostat) 0.4 mg SL NOW STA Stop: 01/02/20 17:09 Last Admin: 01/02/20 17:27 Dose: 0.4 mg Documented by: [id number] Nitroglycerin (Nitro-Bid 2%) 1 inch EXT NOW ONE Stop: 01/02/20 18:50 Last Admin: 01/02/20 19:17 Dose: 1 inch Documented by: [id number] Medical Decision Making Differential Diagnosis Differential diagnoses includes but is not limited to acute coronary syndrome, myocardial infarction, pericarditis, pulmonary embolus, aortic dissection, pneumonia, pneumothorax, musculoskeletal, shingles, esophageal. Medical Records Attestation: I reviewed the patient's medical records. Home Medications Current Medication List: was personally reviewed by me Laboratory Data Attestation: I reviewed the patient's lab results. Result diagrams: 01/02/20 16:50 01/02/20 16:50 Lab Results 01/02/20 01/02/20 01/02/20 Range/Units 16:50 16:50 16:50 WBC 7.64 (4.8-10.8) K/uL RBC 5.35 (4.7-6.1) M/uL Hgb 15.6 (14.0-18.0) g/dL Hct 44.3 (42-52) % MCV 82.8 (80-100) fL MCH 29.2 (25-34) pg MCHC 35.2 (32-36) g/dL RDW Std Deviation 41.9 (36.4-46.3) fL RDW Coeff of Edd 14.0 (11.5-14.5) % Plt Count 193 (130-400) K/uL MPV 10.0 (7.4-10.4) fL Immature Gran % (Auto) 0.4 % Neut % (Auto) 62.2 % Lymph % (Auto) 27.2 % Lares % (Auto) 8.1 % Eos % (Auto) 1.8 % Baso % (Auto) 0.3 % Immature Gran # (Auto) 0.03 H (0.00-0.02) K/uL Neut # (Auto) 4.75 (1.4-6.5) K/uL Lymph # (Auto) 2.08 (1.2-3.4) K/uL Lares # (Auto) 0.62 H (0.11-0.59) K/uL Eos # (Auto) 0.14 (0-0.5) K/uL Baso # (Auto) 0.02 (0-0.2) K/uL PT 10.7 (9.0-12.0) Seconds INR 1.0 (0.9-1.1) APTT 25.1 (21.0-31.0) Seconds PTT Ratio 0.9 Sodium 140 (136-145) mmol/L Potassium 4.7 (3.5-5.1) mmol/L Chloride 106 (98-107) mmol/L Carbon Dioxide 30 (21-32) mmol/L Anion Gap 4.0 (3-11) BUN 16 (7-18) mg/dl Creatinine 1.02 (0.6-1.4) mg/dl Est Cr Clr Drug Dosing 100.2 ml/min Est GFR ( Amer) 94.8 Est GFR (Non-Af Amer) 81.8 BUN/Creatinine Ratio 15.6 (10-20) Glucose 217 H (70-99) mg/dl Calcium 9.5 (8.5-10.1) mg/dl Total Bilirubin 0.5 (0.2-1) mg/dl AST 39 H (15-37) U/L ALT 54 (12-78) U/L Alkaline Phosphatase 68 (45-117) U/L Troponin I < 0.015 (0-0.045) ng/ml Total Protein 7.3 (6.4-8.2) gm/dl Albumin 3.8 (3.4-5.0) gm/dl Globulin 3.5 (2.5-4.0) gm/dl Albumin/Globulin Ratio 1.1 (0.9-2) Lipase 173 (73-393) U/L Imaging Data Radiologist's Impression: Radiology results as stated below per my review and th e radiologist's interpretation: XR chest 1V portable CLINICAL HISTORY: Chest Pain COMPARISON STUDY: Chest radiograph October 31, 2017. FINDINGS: Lung volumes are normal. Lungs are clear. There is no pneumothorax or pleural effusion. Cardiac size is normal. Mediastinal contours are normal. There is no evidence for pulmonary edema. IMPRESSION: No acute cardiopulmonary findings. ACT 112: Negative or not required by law. Electronically signed by: Manny Craft M.D. 01/02/2020 5:02 PM ECG Data Attestation: I personally reviewed and interpreted this ECG as follows: Indication: + chest pain Rate (beats per minute): 66 Rhythm: + normal sinus ECG Intervals/blocks: + Normal QT-c ECG ST segments: no ST elevation ECG Findings: no PVCs Blood Pressure Blood Pressure Findings: Elevated blood pressure Blood Pressure Disposition: further management by hospitalist MDM Narrative This is a 54-year-old male who presents to the ED with a chief complaint of left-sided chest tightness and left arm numbness that started around 2 PM when he was laying down to take a rest. The patient states that he has some associa roni nausea at some point. His symptoms persist although somewhat improved. He continues to have some left-sided discomfort under his left chest. It is not worse with movement. He states that he has not had any recent exertional symptoms. He does report a history of hypertension and high cholesterol. No family history of early cardiac disease. Non-smoker. His initial blood pressure was elevated at 191/88. His physical exam is unremarkable. Initial twelve-lead EKG shows a normal sinus rhythm at a rate of 66 without acute injury or ectopy. No change compared to August 14, 2018. The patient's chest x- ray was negative for acute disease. CBC and complete metabolic panel was normal and a troponin was negative. Lipase was negative. The patient's heart score is a 4, and observation and further inpatient evaluation is recommended. The patient will be seen by the hospitalist. He was treated with aspirin p.o. as well as sublingual nitroglycerin. He states that the sublingual nitro did seem to improve his symptoms somewhat. He was given 1 dose of Nitropaste. He will be seen by the hospitalist for further evaluation and care. Impression & Plan Precordial chest pain Discharge Plan Visit Data Chief Complaint: Chest Pain Stated Complaint: CHEST PAIN AND NUMBNESS IN ARM ED Provider: Darryl Goss Discharge Problem: Precordial chest pain Patient Disposition: Being Evaluated by Hospitalist Forms Stand Alone Forms: Call Back Authorization, [facility] Prescriptions Prescriptions: No Action omeprazole 20 mg tablet,delayed release (DR/EC) 20 mg PO DAILY Qty: 90 RF: 1 metformin 1,000 mg tablet 1,000 mg PO BID Qty: 180 RF: 3 vitamin E (dl, acetate) 1,000 unit capsule See Rx Instructions PO DAILY Qty: 90 RF: 0 cholecalciferol (vitamin D3) 5,000 unit capsule 5,000 units PO DAILY Qty: 30 RF: 0 atorvastatin 20 mg tablet 20 mg PO DAILY Qty: 90 RF: 3 Basaglar KwikPen U-100 Insulin 100 unit/mL (3 mL) insulin pen 65 units SQ DAILY 90 Days Qty: 60 RF: 3 Novolog Flexpen U-100 Insulin 100 unit/mL (3 mL) insulin pen See Rx Instructions SQ BID Qty: 10 RF: 2 (DME) Accu-Chek Guide strip See Dose Instructions .ROUTE .MEDSUPPLY Qty: 400 RF: 5 (DME) lancets [Accu-Chek Fastclix Lancet Drum] misc See Dose Instructions .ROUTE .MEDSUPPLY Qty: 400 RF: 5 (DME) pen needle, diabetic [BD Ultra-Fine Mini Pen Needle] 31 gauge x 3/16" needle See Dose Instructions .ROUTE .MEDSUPPLY Qty: 400 RF: 5 ibuprofen 600 mg tablet 600 mg PO Q6H PRN (Reason: pain) Qty: 60 RF: 0 (DME) lancets [Accu-Chek Fastclix Lancet Drum] misc See Dose Instructions .ROUTE .MEDSUPPLY Qty: 50 RF: 0 (DME) blood-glucose meter [Accu-Chek Guide Glucose Meter] misc See Dose Instructions .ROUTE .MEDSUPPLY Qty: 1 RF: 0 (DME) pen needle, diabetic [BD Ultra-Fine Mini Pen Needle] 31 gauge x 3/16" needle See Dose Instructions .ROUTE .MEDSUPPLY Qty: 30 RF: 0 triamcinolone acetonide 0.5 % cream 1 appln TOP BID Qty: 30 RF: 1 levothyroxine 150 mcg tablet 150 mcg PO DAILY RF: 0 ergocalciferol (vitamin D2) 50,000 unit capsule 50,000 unit PO WK RF: 0 duloxetine 30 mg capsule,delayed release(DR/EC) 30 mg PO DAILY RF: 0 phenazopyridine [Pyridium] 100 mg tablet 100 mg PO TID Qty: 6 RF: 0 lisinopril 20 mg Tablet 20 mg PO DAILY RF: 0 Referrals Referrals: Fozia Monte CRNP [Primary Care Provider] - Risk - HEART Scoring HEART Score for Major Cardiac Events History: Moderately Suspicious EKG: Normal Age: 45-64 Years of Age Risk Factors: >2 Risk Factors Initial Troponin: Normal Limit Total Points: 4 Risk Level: Moderate Risk for Major Adverse Cardiac Event HEART Score Interpretation: Score interpretation (as per derivation study): HEART Adverse Cardiac Score Event Risk Management 0-3 0.9-1.7% In the HEART Score study, these patients were discharged. 4-6 12-16.6% In the HEART Score study, these patients were admitted to the hospital. 7-10 50-65% In the HEART Score study, these patients were candidates for early invasive measurements. Original Source: 1. Raza AJ, Aracelis BE, [place] KEENA. Chest pain in the emergency room: value of the HEART score. Net Heart J. 2008; 16(6):191-6. The scribe's documentation has been prepared under my direction and personally reviewed by me in its entirety. I confirm that the note above accurately reflects all work, treatment, procedures, and medical decision making performed by me.
[2020-01-02 17:21] LABS: Basophils # (auto) 0.02 K/uL (0-0.2); Basophils % (auto) 0.3 %; Eosinophils # (auto) 0.14 K/uL (0-0.5); Eosinophils % (auto) 1.8 %; Hematocrit (blood only) 44.3 % (42-52); Hemoglobin 15.6 g/dL (14.0-18.0); Immature Granulocytes # (auto) 0.03 K/uL (0.00-0.02); Immature Granulocytes % (auto) 0.4 %; Lymphocytes # (auto) 2.08 K/uL (1.2-3.4); Lymphocytes % (auto) 27.2 %; Mean Corpuscular Hemoglobin 29.2 pg (25-34); Mean Corpuscular Hgb Conc 35.2 g/dL (32-36); Mean Corpuscular Volume 82.8 fL (80-100); Monocytes # (auto) 0.62 K/uL (0.11-0.59); Monocytes % (auto) 8.1 %; Neutrophils # (auto) 4.75 K/uL (1.4-6.5); Neutrophils % (auto) 62.2 %; Platelet Count 193 K/uL (130-400); RDW Standard Deviation 41.9 fL (36.4-46.3); Red Blood Count 5.35 M/uL (4.7-6.1); White Blood Count 7.64 K/uL (4.8-10.8)
[2020-01-02 17:36] LABS: Partial Thromboplastin Ratio 0.9; Partial Thromboplastin Time 25.1 Seconds (21.0-31.0); Prothrombin Time 10.7 Seconds (9.0-12.0)
[2020-01-02 17:39] LABS: Alanine Aminotransferase 54 U/L (12-78); Albumin Level 3.8 gm/dl (3.4-5.0); Aspartate Aminotransferase 39 U/L (15-37); BUN Creatinine Ratio 15.6 (10-20); Blood Urea Nitrogen 16 mg/dl (7-18); Calcium 9.5 mg/dl (8.5-10.1); Carbon Dioxide 30 mmol/L (21-32); Chloride 106 mmol/L (98-107); Creatinine Clr Calc Pharmacy 100.2 ml/min; Est GFR (African American) 94.8; Est GFR (Non-African American) 81.8; Glucose 217 mg/dl (70-99); Lipase 173 U/L (73-393); Potassium 4.7 mmol/L (3.5-5.1); Sodium 140 mmol/L (136-145)
[2020-01-02 17:44] LABS: Albumin Globulin Ratio 1.1 (0.9-2); Alkaline Phosphatase 68 U/L (45-117); Bilirubin,Total 0.5 mg/dl (0.2-1); Globulin 3.5 gm/dl (2.5-4.0); Total Protein 7.3 gm/dl (6.4-8.2); Troponin I < 0.015 ng/ml (0-0.045)
[2020-01-02] MEDS ORDERED: NITROGLYCERIN 2% OINTMENT 30GM TUBE EXT ONE (18:49)
--- NOTE | 2020-01-02 21:05 | History & Physical Report ---
Date of Service January 02, 2020 Assessment & Plan (1) Precordial chest pain: Precordial chest pain radiating to left arm/hypertension- The patient will be admitted to telemetry for serial cardiac enzymes, serial EKG's, cardiac rhythm monitoring and a 2-D echocardiogram with Dopplers. If work-up is negative, patient will need to have a stress test prior to discharge. Patient did also describe some transient weakness left upper extremity along with the initial discomfort. He has a known history of cervical degenerative disc disease, however, since his left arm discomfort was associated with chest discomfort, it is not likely that this is related to cervical nerve root compression. Aspirin 81 mg p.o. daily. Continue Nitropaste 1 inch to anterior chest wall every 6 hours. Present on Admission?: Yes (2) Chest pain radiating to arm: See above Present on Admission?: Yes (3) Depression: Continue duloxetine 30 mg daily Present on Admission?: Yes (4) Hypertension: Continue lisinopril 20 mg p.o. daily Present on Admission?: Yes (5) Hypothyroidism: Continue levothyroxine 50 mcg p.o. daily Present on Admission?: Yes (6) Dyslipidemia: Continue atorvastatin 20 mg p.o. daily. Check a fasting lipid panel Present on Admission?: Yes (7) Diabetes: Hold metformin. Change Lantus from 60 to 50 units subcu daily. Placed on Accu-Cheks before meals and at bedtime with NovoLog coverage per scale. Check a hemoglobin A1c Present on Admission?: Yes (8) Radicular pain of left lower extremity: The patient does continue to have intermittent symptoms of weakness and radiculopathy to the left lower extremity from lumbar spine. Present on Admission?: Yes History of Present Illness Chief Complaint: The patient presents to the emergency department due to the development of precordial chest pain with radiation to left arm, while at rest earlier in the day today. Primary Care Provider: FOSTER Anthony The patient is a 54-year-old male with a past medical history including hypertension, hypothyroidism, hypertriglyceridemia, diabetes mellitus, kidney stones, lumbar degenerative disc disease with left lower extremity radiculopathy. Patient reports while at rest today, he developed acute onset of left parasternal chest discomfort, with radiation to left arm, during which his left arm became weak as well. He has chronic weakness in his left lower extremity due to nerve impingement in his lumbar spine. In the emergency department, patient underwent assessment including normal laboratories and imaging studies, but did have relief with topical nitroglycerin, and was thus referred for evaluation for admission. Allergies Allergy/AdvReac Type Severity Reaction Status Date / Time No Known Drug Allergies Allergy Verified 10/31/19 11:33 Home Medications Home Medications Medication Instructions Recorded Confirmed Type lisinopril 20 mg PO DAILY 08/15/18 10/31/19 History blood sugar diagnostic #400 ea 07/05/19 10/31/19 Rx insulin aspart U-100 100 unit/mL See Rx Instructions SQ BID #10 syr 07/05/19 10/31/19 Rx (3 mL) subcutaneous pen lancets #400 ea 07/05/19 10/31/19 Rx pen needle, diabetic 31 gauge x #400 ea 07/05/19 10/31/19 Rx 3/16" duloxetine 30 mg PO DAILY 07/08/19 10/31/19 History levothyroxine 150 mcg PO DAILY 07/08/19 10/31/19 History blood-glucose meter #1 ea 07/12/19 10/31/19 History ibuprofen 600 mg tablet 600 mg PO Q6H PRN #60 tab 07/12/19 10/31/19 History lancets #50 ea 07/12/19 10/31/19 History pen needle, diabetic 31 gauge x #30 ea 07/12/19 10/31/19 History 3/16" omeprazole 20 mg tablet,delayed 20 mg PO DAILY #90 tab 08/14/19 10/31/19 Rx release metformin 1,000 mg tablet 1,000 mg PO BID #180 tab 08/15/19 10/31/19 Rx vitamin E (dl, acetate) 1,000 unit See Rx Instructions PO DAILY #90 11/23/19 Rx capsule cap cholecalciferol (vitamin D3) 125 5,000 units PO DAILY #30 cap 11/29/19 Rx mcg (5,000 unit) capsule atorvastatin 20 mg tablet 20 mg PO DAILY #90 tab 12/16/19 Rx insulin glargine [Basaglar KwikPen 60 units SQ DAILY 01/02/20 01/02/20 History U-100 Insulin] Past Med/Surg History Medical History Diabetes Hypertension Surgical History History of vasectomy Family History Other No significant family history Social History Communication Ability: Effective Beliefs That Will Affect Care: None marital status: Current Living Situation: Alone Other Information That Helps Us Care for You: No Feels Safe at Home: Yes Safety Concerns: Feels Safe At This Time Smoking Status: Never smoker Hx Alcohol Use: No Hx Substance Use: No Review of Systems Review of Systems: The patient denies palpitations, shortness of breath, dyspnea on exertion, cough, lower extremity swelling, sore throat, fevers, chills, sweats, weight change, fatigue, nausea, vomiting, diarrhea , constipation, abdominal pain, pelvic pain, blood in urine or stool, dysuria, urinary frequency or urgency, lightheadedness, dizziness, headache, memory loss, loss of consciousness, rash, abnormal bruising or bleeding, imbalance, focal or generalized weakness, numbness or tingling in right arm or bilateral legs, generalized arthralgias or myalgias, back or neck pain, or night sweats. The review of systems is otherwise negative other than for that already noted above, and at least 10 systems have been reviewed. Physical Exam Physical Exam: The patient is awake, alert and oriented 3, well developed and well nourished, normocephalic and atraumatic, lying in bed and in no acute distress. HEENT--PERRL, EOMI, mucous membranes and oropharynx normal. Neck--supple. No JVD. No bruits. Thyroid normal, trachea midline, no adenopathy. Heart--normal S1 and S2. No murmurs, rubs or gallops. Lungs--clear bilaterally, no respiratory distress, no accessory muscle use. Abdomen--normal bowel sounds and soft. Nontender. Nondistended. Obese. Extremities--no cyanosis or clubbing. No edema. There are good distal pulses b/l. Dermatologic--normal skin turgor, normal color, no abnormal lymph nodes, no rash. Neurologic--cranial nerves II through XII grossly intact. Rheumatologic--normal range of motion. Psychiatric--normal affect. Results & Data Vital Signs (Past 12 Hours) Vital Signs Temp Pulse Resp BP Pulse Ox 01/02/20 20:15 60 22 174/80 H 96 01/02/20 20:01 59 L 16 96 01/02/20 20:00 58 L 24 142/85 H 96 01/02/20 19:45 61 13 168/99 H 97 01/02/20 19:31 59 L 14 96 01/02/20 19:30 58 L 18 149/84 H 96 01/02/20 19:17 59 L 21 174/80 H 98 01/02/20 19:00 67 20 155/76 H 97 01/02/20 18:45 66 14 133/67 94 01/02/20 18:30 62 18 142/69 H 93 01/02/20 18:15 64 19 136/75 91 01/02/20 18:00 68 19 133/76 91 01/02/20 17:45 67 18 137/77 93 01/02/20 17:33 79 14 137/77 94 01/02/20 17:27 67 18 153/84 H 95 01/02/20 16:39 98.2 F 72 20 191/88 H 98 Laboratory Results Laboratory Results WBC 7.64 K/uL (4.8-10.8) 01/02/20 16:50 RBC 5.35 M/uL (4.7-6.1) 01/02/20 16:50 Hgb 15.6 g/dL (14.0-18.0) 01/02/20 16:50 Hct 44.3 % (42-52) 01/02/20 16:50 MCV 82.8 fL (80-100) 01/02/20 16:50 MCH 29.2 pg (25-34) 01/02/20 16:50 MCHC 35.2 g/dL (32-36) 01/02/20 16:50 RDW Std Deviation 41.9 fL (36.4-46.3) 01/02/20 16:50 RDW Coeff of Edd 14.0 % (11.5-14.5) 01/02/20 16:50 Plt Count 193 K/uL (130-400) 01/02/20 16:50 MPV 10.0 fL (7.4-10.4) 01/02/20 16:50 Immature Gran % (Auto) 0.4 % 01/02/20 16:50 Neut % (Auto) 62.2 % 01/02/20 16:50 Lymph % (Auto) 27.2 % 01/02/20 16:50 Marin % (Auto) 8.1 % 01/02/20 16:50 Eos % (Auto) 1.8 % 01/02/20 16:50 Baso % (Auto) 0.3 % 01/02/20 16:50 Immature Gran # (Auto) 0.03 K/uL (0.00-0.02) H 01/02/20 16:50 Neut # (Auto) 4.75 K/uL (1.4-6.5) 01/02/20 16:50 Lymph # (Auto) 2.08 K/uL (1.2-3.4) 01/02/20 16:50 Marin # (Auto) 0.62 K/uL (0.11-0.59) H 01/02/20 16:50 Eos # (Auto) 0.14 K/uL (0-0.5) 01/02/20 16:50 Baso # (Auto) 0.02 K/uL (0-0.2) 01/02/20 16:50 PT 10.7 Seconds (9.0-12.0) 01/02/20 16:50 INR 1.0 (0.9-1.1) 01/02/20 16:50 APTT 25.1 Seconds (21.0-31.0) 01/02/20 16:50 PTT Ratio 0.9 01/02/20 16:50 Sodium 140 mmol/L (136-145) 01/02/20 16:50 Potassium 4.7 mmol/L (3.5-5.1) 01/02/20 16:50 Chloride 106 mmol/L (98-107) 01/02/20 16:50 Carbon Dioxide 30 mmol/L (21-32) 01/02/20 16:50 Anion Gap 4.0 (3-11) 01/02/20 16:50 BUN 16 mg/dl (7-18) 01/02/20 16:50 Creatinine 1.02 mg/dl (0.6-1.4) 01/02/20 16:50 Est Cr Clr Drug Dosing 100.2 ml/min 01/02/20 16:50 Est GFR ( Amer) 94.8 01/02/20 16:50 Est GFR (Non-Af Amer) 81.8 01/02/20 16:50 BUN/Creatinine Ratio 15.6 (10-20) 01/02/20 16:50 Glucose 217 mg/dl (70-99) H 01/02/20 16:50 Calcium 9.5 mg/dl (8.5-10.1) 01/02/20 16:50 Total Bilirubin 0.5 mg/dl (0.2-1) 01/02/20 16:50 AST 39 U/L (15-37) H 01/02/20 16:50 ALT 54 U/L (12-78) 01/02/20 16:50 Alkaline Phosphatase 68 U/L (45-117) 01/02/20 16:50 Troponin I < 0.015 ng/ml (0-0.045) 01/02/20 22:39 Total Protein 7.3 gm/dl (6.4-8.2) 01/02/20 16:50 Albumin 3.8 gm/dl (3.4-5.0) 01/02/20 16:50 Globulin 3.5 gm/dl (2.5-4.0) 01/02/20 16:50 Albumin/Globulin Ratio 1.1 (0.9-2) 01/02/20 16:50 Lipase 173 U/L (73-393) 01/02/20 16:50 Diagnostic Findings [place], [place] [phone] XRay Report Patient: JOE SINGH LAdhannah Date: 01/02/20 MR#: [id number]: [address] Acct ID:[id number]: Date: [address] Zip: [place] [address] Age: 54Location: ED Sex: M Room/Bed: Att Phy:Diagnosis: CHEST PAIN AND NUMBNESS IN ARM Keila Phy: Leeanna Robb MDService Date: 01/02/20 Fam Phy:Interpreting Phy: Manny Craft MD Admit Phy: Ordering Phy: Darryl Goss D.O. cc: ~ XR chest 1V portable CLINICAL HISTORY: Chest Pain COMPARISON STUDY: Chest radiograph October 31, 2017. FINDINGS: Lung volumes are normal. Lungs are clear. There is no pneumothorax or pleural effusion. Cardiac size is normal. Mediastinal contours are normal. There is no evidence for pulmonary edema. IMPRESSION: No acute cardiopulmonary findings. ACT 112: Negative or not required by law. Electronically signed by: Manny Craft M.D. 01/02/2020 5:02 PM Dictated: 01/02/201700 Transcribed: 01/02/201700 Code Status & VTE Plan Code Status Full code VTE Prophylaxis Plan VTE Prophylaxis will be ordered: Yes PG Care Time/CCT Total # of Minutes Spent Total Time Spent with Patient: Total time spent is greater than 50% in coordination of care (as documented) at patient's floor/unit and/or counseling patient: Coding Level of Care Code 63401 OBS Care - Level 3 Diagnoses Precordial chest pain R07.2 Chest pain radiating to arm R07.89 Depression F32.9 Hypertension I10 Hypothyroidism E03.9 Dyslipidemia E78.5 Diabetes E11.9 Radicular pain of left lower extremity M54.10
[2020-01-02] MEDS ORDERED: DEXTROSE 50% 50 ML SYRINGE IV PRN (22:08)
[2020-01-02] MEDS ORDERED: POLYETHYLENE (MIRALAX) 17 GM PACK PO PRN (22:08)
[2020-01-02] MEDS ORDERED: CARBOHYDRATES FOR HYPOGLYCEMIA PO PRN (22:08)
[2020-01-02] MEDS ORDERED: MAGNESIUM HYDROXIDE SUSP 30 ML UDC PO PRN (22:08)
[2020-01-02] MEDS ORDERED: GLUCAGON FOR INJ 1 MG VIAL SQ PRN (22:08)
[2020-01-02] MEDS ORDERED: MoRPHine SULFATE 2 MG/ML CARP IV PRN (22:08)
[2020-01-02] MEDS ORDERED: GLUCOSE 10 TABS/TUBE PO PRN (22:08)
[2020-01-02] MEDS ORDERED: NITROGLYCERIN SL 0.4 MG/TAB TAB SL PRN (22:08)
[2020-01-02] MEDS ORDERED: ALUMINUM/MAGNESIUM SUSP 30 ML UDC PO PRN (22:08)
[2020-01-02] MEDS ORDERED: ONDANSETRON INJ 2 MG/ML 2 ML VIAL IV PRN (22:08)
[2020-01-02] MEDS ORDERED: GLUCOSE 40% GEL 15 GM TUBE PO PRN (22:08)
[2020-01-02] MEDS: ACETAMINOPHEN 325 MG TAB PO PRN (22:56)
[2020-01-03] MEDS: ACETAMINOPHEN 325 MG TAB PO PRN (06:09)
[2020-01-03 06:14] LABS: Basophils # (auto) 0.02 K/uL (0-0.2); Basophils % (auto) 0.2 %; Eosinophils # (auto) 0.18 K/uL (0-0.5); Eosinophils % (auto) 2.1 %; Hematocrit (blood only) 41.1 % (42-52); Hemoglobin 13.7 g/dL (14.0-18.0); Immature Granulocytes # (auto) 0.03 K/uL (0.00-0.02); Immature Granulocytes % (auto) 0.4 %; Lymphocytes % (auto) 27.4 %; Mean Corpuscular Hemoglobin 28.5 pg (25-34); Mean Corpuscular Hgb Conc 33.3 g/dL (32-36); Mean Corpuscular Volume 85.4 fL (80-100); Mean Platelet Volume 10.1 fL (7.4-10.4); Monocytes # (auto) 0.68 K/uL (0.11-0.59); Monocytes % (auto) 8.1 %; Neutrophils # (auto) 5.18 K/uL (1.4-6.5); Neutrophils % (auto) 61.8 %; Platelet Count 170 K/uL (130-400); RDW Coefficient of Variation 14.1 % (11.5-14.5); RDW Standard Deviation 43.6 fL (36.4-46.3); Red Blood Count 4.81 M/uL (4.7-6.1); White Blood Count 8.39 K/uL (4.8-10.8)
[2020-01-03 06:30] LABS: INR 1.1 (0.9-1.1); Partial Thromboplastin Ratio 0.9; Partial Thromboplastin Time 25.5 Seconds (21.0-31.0); Prothrombin Time 11.1 Seconds (9.0-12.0)
[2020-01-03 06:37] LABS: Estimated Average Glucose 223 mg/dl; Hemoglobin A1C 9.4 % (4.5-5.6)
[2020-01-03 06:48] LABS: Albumin Level 3.3 gm/dl (3.4-5.0); Calcium 9.1 mg/dl (8.5-10.1); Creatinine Clr Calc Pharmacy 118.5 ml/min; Est GFR (African American) 112.4; Est GFR (Non-African American) 96.9; Magnesium 1.8 mg/dl (1.8-2.4); Phosphorus 3.8 mg/dl (2.5-4.9); Potassium 4.3 mmol/L (3.5-5.1)
[2020-01-03] MEDS ORDERED: ASPIRIN 81 MG ECTAB PO SCH (09:00)
[2020-01-03] MEDS: INSULIN ASPART 100 UNITS/ML 3 ML PEN SC SCH ×2 (09:15→14:04)
--- NOTE | 2020-01-03 11:54 | XCELERA ---
[id number] \\MCX[facility]EL[facility]E\PDF_Reports\[id number]___[id number]
--- NOTE | 2020-01-03 13:04 | Electrocardiogram Report ---
Test Reason : Blood Pressure : / mmHG Vent. Rate : 066 BPM Atrial Rate : 066 BPM P-R Int : 146 ms QRS Dur : 110 ms QT Int : 418 ms P-R-T Axes : 046 -48 040 degrees QTc Int : 438 ms Normal sinus rhythm Incomplete right bundle branch block Left anterior fascicular block Abnormal ECG When compared with ECG of 14-AUG-2018 21:18, No significant change was found Confirmed by Tomas Bui ([id number]) on 01/03/2020 1:04:04 PM Referred By: REFERRED SELF Confirmed By:Tomas Bui
--- NOTE | 2020-01-03 14:14 | Electrocardiogram Report ---
Test Reason : Blood Pressure : / mmHG Vent. Rate : 054 BPM Atrial Rate : 054 BPM P-R Int : 182 ms QRS Dur : 122 ms QT Int : 462 ms P-R-T Axes : 066 -05 032 degrees QTc Int : 438 ms Sinus bradycardia Leftward axis Borderline ECG When compared with ECG of 02-JAN-2020 16:45, (unconfirmed) No significant change Confirmed by Tomas Bui ([id number]) on 01/03/2020 2:14:23 PM Referred By: REFERRED SELF Confirmed By:Tomas Bui
--- NOTE | 2020-01-03 14:56 | XCELERA ---
[id number] \\[facility]\PDF_Reports\[id number]}___[id number]
--- NOTE | 2020-01-03 16:22 | Discharge Summary ---
Date of Service January 03, 2020 Admission HPI Per Admitting Provider The patient is a 54-year-old male with a past medical history including hypertension, hypothyroidism, hypertriglyceridemia, diabetes mellitus, kidney stones, lumbar degenerative disc disease with left lower extremity radiculopathy. Patient reports while at rest today, he developed acute onset of left parasternal chest discomfort, with radiation to left arm, during which his left arm became weak as well. He has chronic weakness in his left lower extremity due to nerve impingement in his lumbar spine. In the emergency department, patient underwent assessment including normal laboratories and imaging studies, but did have relief with topical nitroglycerin, and was thus referred for evaluation for admission. Principal Diagnosis Non-cardiac chest pain Discharge Exam Constitutional WD/WN, vitals as above Eyes EOM intact bilaterally; no conjunctival abnormality ENMT external ear and nose normal, oropharynx normal Neck trachea midline, no thyromegaly normal visual inspection Respiratory normal respiratory effort, lungs clear to auscultation no respiratory distress Cardiovascular RRR, no murmur, no edema Gastrointestinal (Abdomen) Inspection/Auscultation: abdomen normal to inspection; abdomen not distended Musculoskeletal no cyanosis or clubbing, extremities motor strength 5/5 Skin no rashes, warm and dry Neurologic moves all extremities and awake Psychiatric Orientation: alert, oriented to person and cooperative Discharge Data Allergies Allergy/AdvReac Type Severity Reaction Status Date / Time No Known Drug Allergies Allergy Verified 10/31/19 11:33 Consultations 01/02/20 18:52 ED Decision to Admit Stat 01/02/20 22:08 Consult Case Management - Discharge Planning Routine Hospital Course (1) Precordial chest pain: Troponins & EKGs all negative. - Exercise stress echo on 01/03 was negative for ischemic changes. It showed EF 65-70% without any regional wall motion abnormalities. - Discussed dietary issues and GERD medications if the chest pain comes back. - Will follow up with PCP (2) Chest pain radiating to arm: See above (3) Depression: Continue duloxetine 30 mg daily (4) Hypertension: Continue lisinopril 20 mg p.o. daily (5) Hypothyroidism: Continue levothyroxine 50 mcg p.o. daily (6) Dyslipidemia: Continue atorvastatin 20 mg p.o. daily. (7) Diabetes: A1c was 9.4% which shows not-optimal glucose control. - Held metformin. - Follow up with PCP (8) Radicular pain of left lower extremity: The patient does continue to have intermittent symptoms of weakness and radiculopathy to the left lower extremity from lumbar spine. Total Time Total Time Spent Total Time Spent (In Minutes): 35 Discharge Plan Discharge Items Patient Disposition: Home - Self-Care Reason For Visit: CHEST PAIN RADIATING TO LEFT ARM Discharge Diagnosis: Non-cardiac chest pain Activity: Resume your previous activity Non-emergency contact: Primary Care Provider Call non-emergency contact if: your symptoms worsen and your pain is not controlled Follow-up/Referrals: Fozia Monte CRNP [Primary Care Provider] - 01/07/20 10:30 am (Please follow up at [facility] with FOSTER Peralta on TuesdayJanuary 07 at 10:30 am. *If you are unable to keep this appointment, please call the office to re- schedule at [phone]. ) Diet: Heart Healthy Addtl Attending Provider Instructions: You were admitted to the hospital for chest pain. We did blood work called troponins that indicated you did not have a heart attack. This is great news! We also did a stress test which did not show any sign of impaired blood flow to the heart. This is also great news! It tells us that your risk of having a heart attack in the next weeks and months is also low. The best way to prevent heart attacks is to keep good control of your blood pressure and diabetes. Your A1c in the hospital was 9.4% which indicates you have room to improve your blood sugar control. This pain could have been caused by heart-burn which sometimes causes chest pain and nausea. If your chest pain comes back, you can try to take Tums, Zantec or Prilosec (or a similar heart-burn medication), Tylenol, and/or warm compresses. If your chest pain does not improve, or if you have concerning symptoms such as dizziness, lightheadedness, shortness of breath, nausea, vomiting, palpitations (racing heart), or pass out, you need to come to the hospital or call . If the chest pain improves, call your PCP for follow up. Pending Studies at Discharge: No Stand-Alone Forms: Call Back Authorization, [facility], Smoking Cessation Medications and DC Order Prescriptions: Continued omeprazole 20 mg tablet,delayed release (DR/EC) 20 mg PO DAILY Qty: 90 RF: 1 metformin 1,000 mg tablet 1,000 mg PO BID Qty: 180 RF: 3 vitamin E (dl, acetate) 1,000 unit capsule See Rx Instructions PO DAILY Qty: 90 RF: 0 cholecalciferol (vitamin D3) 5,000 unit capsule 5,000 units PO DAILY Qty: 30 RF: 0 atorvastatin 20 mg tablet 20 mg PO DAILY Qty: 90 RF: 3 Novolog Flexpen U-100 Insulin 100 unit/mL (3 mL) insulin pen See Rx Instructions SQ BID Qty: 10 RF: 2 (DME) Accu-Chek Guide strip See Dose Instructions .ROUTE .MEDSUPPLY Qty: 400 RF: 5 (DME) lancets [Accu-Chek Fastclix Lancet Drum] misc See Dose Instructions .ROUTE .MEDSUPPLY Qty: 400 RF: 5 (DME) pen needle, diabetic [BD Ultra-Fine Mini Pen Needle] 31 gauge x 3/16" needle See Dose Instructions .ROUTE .MEDSUPPLY Qty: 400 RF: 5 ibuprofen 600 mg tablet 600 mg PO Q6H PRN (Reason: pain) Qty: 60 RF: 0 (DME) lancets [Accu-Chek Fastclix Lancet Drum] misc See Dose Instructions .ROUTE .MEDSUPPLY Qty: 50 RF: 0 (DME) blood-glucose meter [Accu-Chek Guide Glucose Meter] misc See Dose Instructions .ROUTE .MEDSUPPLY Qty: 1 RF: 0 (DME) pen needle, diabetic [BD Ultra-Fine Mini Pen Needle] 31 gauge x 3/16" needle See Dose Instructions .ROUTE .MEDSUPPLY Qty: 30 RF: 0 levothyroxine 150 mcg tablet 150 mcg PO DAILY RF: 0 duloxetine 30 mg capsule,delayed release(DR/EC) 30 mg PO DAILY RF: 0 Basaglar KwikPen U-100 Insulin 100 unit/mL (3 mL) insulin pen 60 units SQ DAILY RF: 0 lisinopril 20 mg Tablet 20 mg PO DAILY RF: 0 Discharge Orders: Discharge Order (Routine); Ordered 01/03/20 Ordered By: Iban Kuo/Other Patient Handouts: Diabetes Resources, Diabetes Healthy Meals, Understanding Carbohydrates, Diabetes Exercise Benefits, Diabetes Manage A1C Test Admission Data Admit Date/Time: 01/02/20 21:04 Attending Provider: Iban Darden Admit Provider: Roland Multani Primary Care Provider: Fozia Monte Other Providers: Iban Darden Other Interventions: Discharge Summary Assessment (RN) Last Done: 01/03/20 13:17 DC Date/Time DO NOT enter until pt leaves facility: 01/03/20 14:36 Coding Level of Care Code 36838 OBS Care - Discharge Diagnoses Precordial chest pain R07.2 Chest pain radiating to arm R07.89 Depression F32.9 Hypertension I10 Hypothyroidism E03.9 Dyslipidemia E78.5 Diabetes E11.9 Radicular pain of left lower extremity M54.10
== END 2020-01-03 14:36 | disposition home or self-care (01) ==
LOC: ED 16:36 → 2S 16:36 → SUATTDRO 21:04 → 2S 21:51